=== PATIENT | female | born 1980 | race American Indian/Alaskan Native ===

== ENCOUNTER 2017-09-18 20:41 | Outpatient (CLI) | payer SELFPAY ==
[2017-09-18 21:22] VITALS: BP 127/74
[2017-09-18] MEDS ORDERED: LACTATED RINGERS 1,000 ML IV SCH (22:11)
[2017-09-18] MEDS ORDERED: LACTATED RINGERS 1,000 ML ONE (22:12)
== END 2017-09-18 23:31 | disposition home or self-care (01) ==
LOC: TRG 20:41
PROVIDERS: ATTEND Obstetrics & Gynecology
DX: O09.522 Supervision of elderly multigravida, second trimester (principal); O47.02 False labor before 37 completed weeks of gestation, second trimester; Z3A.27 27 weeks gestation of pregnancy
CPT/HCPCS: 59025; 96360; J7120

== ENCOUNTER 2017-10-10 12:41 | Outpatient (CLI) | payer OTHER ==
[2017-10-10] MEDS ORDERED: LACTATED RINGERS 500 ML IV ONE (12:57)
[2017-10-10 13:43] LABS: Bilirubin,Urine NEG (Negative); Blood,Urine NEG (Negative); Color,Urine Straw (Yellow); Protein,Urine <15 mg/dL mg/dL (Negative); Urobilinogen,Urine < 2.0 mg/dL (<2.0); WBC,Urine < 1.0 /HPF (0.0-6.0)
== END 2017-10-10 14:07 | disposition home or self-care (01) ==
LOC: TRG 12:41
PROVIDERS: ATTEND Obstetrics & Gynecology
DX: O09.523 Supervision of elderly multigravida, third trimester (principal); O47.03 False labor before 37 completed weeks of gestation, third trimester; Z3A.30 30 weeks gestation of pregnancy
CPT/HCPCS: 59025; 81001

== ENCOUNTER 2017-11-16 21:14 | Outpatient (CLI) | payer SELFPAY ==
[2017-11-16] MEDS ORDERED: LACTATED RINGERS 1,000 ML IV ONE (22:26)
[2017-11-16] MEDS ORDERED: BRETHINE SUB-Q STA (23:27)
== END 2017-11-17 00:39 | disposition home or self-care (01) ==
LOC: TRG 21:14
PROVIDERS: ATTEND Obstetrics & Gynecology
DX: O47.1 False labor at or after 37 completed weeks of gestation (principal); Z3A.37 37 weeks gestation of pregnancy
CPT/HCPCS: 59025; 96360; 96372; J3105; J7120

== ENCOUNTER 2017-11-30 17:11 | Outpatient (CLI) | payer OTHER ==
[2017-11-30 17:33] VITALS: BP 123/71
--- NOTE | 2017-11-30 23:23 | Ultrasound Report ---
FINAL REPORT PROCEDURE: US OB LIMITED TECHNIQUE: Real-time limited sonographic examination was performed for evaluation of amniotic fluid volume for each fetus with image documentation (1 or more fetuses). CPT 81758 HISTORY: OUSMANE, BPP COMPARISON: No prior studies are available for comparison. FINDINGS: A single live intrauterine gestation is identified with a heart rate of 140 beats per minute. Amniotic fluid is within normal limits. Amniotic fluid index is 16.9 centimeters. IMPRESSION: OUSMANE is 16.9.
--- NOTE | 2017-11-30 23:24 | Ultrasound Report ---
FINAL REPORT PROCEDURE: US OB BPP WO NON-STRESS TECHNIQUE: Sonographic evaluation for breathing, movement, tone, and amniotic fluid volume was performed. CPT 07119 HISTORY: OUSMANE, BPP COMPARISON: No prior studies are available for comparison. FINDINGS: Amniotic fluid volume: Normal-score 2. At least one vertical pocket > 2 cm or more in vertical axis. breathing: Normal-score 2. movement: Normal-score 2. tone: Normal. Score: 8 of 8. heart rate is 140 beats per minute. IMPRESSION: Biophysical profile is 8/8.
== END 2017-11-30 19:05 | disposition home or self-care (01) ==
LOC: TRG 17:11
PROVIDERS: ATTEND Obstetrics & Gynecology
DX: O47.1 False labor at or after 37 completed weeks of gestation (principal); Z3A.38 38 weeks gestation of pregnancy
CPT/HCPCS: 76815; 76819

== ENCOUNTER 2017-12-02 21:07 | Inpatient (IN) | payer OTHER ==
[2017-12-02] MEDS ORDERED: VISTARIL PO ONE (22:25)
[2017-12-02] MEDS ORDERED: LACTATED RINGERS 1,000 ML IV ONE (22:40)
[2017-12-02] MEDS ORDERED: ZOFRAN IV ONE (22:41)
[2017-12-02] MEDS ORDERED: PEPCID IV ONE (23:28)
[2017-12-02] MEDS ORDERED: REGLAN IV ONE (23:28)
[2017-12-02] MEDS ORDERED: BICITRA PO ONE (23:28)
[2017-12-02 23:43] LABS: Basophils % (Auto) 0.7 % (0.0-1.8); Eosinophils # (Auto) 0.1 K/mm3 (0.0-0.4); Eosinophils % (Auto) 1.1 % (0.0-4.3); Hematocrit 37.4 % (30.3-42.9); Hemoglobin 12.1 gm/dl (10.1-14.3); Lymphocytes # (Auto) 1.6 K/mm3 (1.2-5.4); Lymphocytes % (Auto) 22.2 % (13.4-35.0); Mean Corpuscular HGB Conc 32 % (30-34); Mean Corpuscular Hemoglobin 26 pg (28-32); Mean Corpuscular Volume 81 fl (79-97); Monocytes # (Auto) 0.7 K/mm3 (0.0-0.8); Monocytes % (Auto) 9.7 % (0.0-7.3); Platelet Count 253 K/mm3 (140-440); Red Blood Count 4.61 M/mm3 (3.65-5.03); Red Cell Distribution Width 15.2 % (13.2-15.2)
--- NOTE | 2017-12-02 23:44 | History and Physical Report ---
History of Present Illness Date of examination: 12/02/17 Chief complaint: Abdominal pains History of present illness: Pt is a 37yo BF EDC 12/13/17; EGA 38 3/7 weeks presents to L&D complaining of severe pain along her incision with nausea and vomiting x several hours. She is scheduled for a Repeat C Section 12/07/17, but is currently daisy q 4-5 mins with intense pains. She received care at [facility] since 8 weeks and course complicated by GDM on Glyburide, although the chart notes she should be on Insulin. She has previous C Section x 2, but we will proceed with a repeat C Section due to possible uterine incision pains. Past History Past Medical History: diabetes (on Glyburide) Past Surgical History: section (x2) Family/Genetic History: none Social history: no significant social history, - Obstetrical History Expected Date of Delivery: 12/13/17 Actual Gestation: 38 Week(s) 3 Day(s) : 3 Medications and Allergies Allergies Allergy/AdvReac Type Severity Reaction Status Date / Time No Known Allergies Allergy Verified 11/30/17 17:16 Home Medications Medication Instructions Recorded Confirmed Last Taken Type glyBURIDE [Glyburide] 5 mg PO DAILY 11/30/17 11/30/17 11/26/17 History Active Meds: Active Medications Lactated Ringer's (Lactated Ringers) 1,000 mls @ 999 mls/hr IV BOLUS ONE Stop: 12/02/17 23:40 Last Admin: 12/02/17 23:02 Dose: 999 mls/hr Cefazolin Sodium (Ancef/Sterile Water 2 Gm/20 Ml) 2 gm in 20 mls @ 80 mls/hr IV PREOP NR; Protocol Stop: 12/02/17 23:59 Lactated Ringer's (Lactated Ringers) 1,000 mls @ 2,250 mls/hr IV PREOP EB Stop: 12/04/17 00:12 Oxytocin/Sodium Chloride (Pitocin/Ns 20 Unit/1000ml Drip) 20 units in 1,000 mls @ 0 mls/hr IV TITR EB Review of Systems All systems: negative - Vital Signs Vital signs: Vital Signs Temp Resp 98.9 F 18 12/02/17 21:14 12/02/17 21:14 Temp Pulse Resp BP Pulse Ox 98.9 F 89 18 124/79 97 12/02/17 21:14 12/02/17 23:32 12/02/17 21:14 12/02/17 21:15 12/02/17 23:32 - Physical Exam Breasts: Positive: deferred Cardiovascular: Regular rate Lungs: Positive: Clear to auscultation Abdomen: Positive: normal appearance Genitourinary (Female): Positive: normal external genitalia Uterus: Positive: enlarged Extremities: Positive: normal - Obstetrical FHR: category 1 Uterine Contraction Monitor Mode: External Uterine Contraction Pattern: Regular Uterine Tone Measurement Phase: Contraction Uterine Contraction Intensity: Strong/Firm Results Result Diagrams: 12/02/17 23:00 All other labs normal. Assessment and Plan - Patient Problems (1) 38 weeks gestation of Onset Date: 12/02/17 Current Visit: Yes Status: Acute Plan to address problem: A: IUP @ 38 3/7 weeks in early labor Previous C Section x 2 AMA GDM P: Admit to L&D for repeat C Section Accuchecks (2) Previous section Onset Date: 12/02/17 Current Visit: Yes Status: Acute (3) AMA (advanced maternal age) multigravida 35+ Onset Date: 12/02/17 Current Visit: Yes Status: Acute Qualifiers: Trimester: third trimester Qualified Code(s): O09.523 - Supervision of elderly multigravida, third trimester (4) Gestational diabetes mellitus (GDM) Onset Date: 12/02/17 Current Visit: Yes Status: Acute Qualifiers: Gestational diabetes mellitus control: oral hypoglycemic-controlled Trimester: third trimester Qualified Code(s): O24.415 - Gestational diabetes mellitus in , controlled by oral hypoglycemic drugs
[2017-12-02] MEDS ORDERED: LACTATED RINGERS 1,000 ML IV SCH (23:45)
[2017-12-02] MEDS ORDERED: PITOCin/NS 20 UNIT/1000ML DRIP 20 UNITS/1,000 ML BAG IV SCH (23:45)
[2017-12-02] MEDS ORDERED: ANCEF/STERILE WATER 2 GM/20 ML 2 GM/20 ML SYRINGE IV NR (23:45)
[2017-12-03] MEDS ORDERED: NACL 0.9% IR ONE (03:00)
[2017-12-03] MEDS ORDERED: WATER FOR IRRIG STERILE IR ONE (03:00)
--- NOTE | 2017-12-03 04:10 | Operative Report ---
Operative Report Operative Report: Date of procedure: 12/03/2017 Pre-operative diagnosis: 1. Intrauterine at 38-4/7 weeks in labor 2. Previous 2 3. Gestational diabetes 4. Advanced maternal age Post-operative diagnosis: Same with macrosomia Procedure name(s): Repeat low transverse section Surgeon: Thuan Nixon MD Transit Planning Manager: None Anesthesia: Spinal epidural anesthesia by Dr. Johnson EBL: 700 mL Findings: A 4741 g male infant Apgars 8 at 1 minute and 9 at 5 minutes. Clear amniotic fluid. Normal uterus with lower uterine segment adhesions. Normal tubes and ovaries bilaterally. Procedure: After the patient was prepped and draped in usual sterile fashion, and after satisfactory level of epidural anesthesia was obtained, the skin knife was used to make a transverse skin incision through the previous skin scars. The incision was excised down to layer of the fascia, which was nicked in the midline and extended laterally using the Bovie cautery. The rectus muscles were dissected off the rectus fascia both superiorly and inferiorly. The rectus bellies in the midline, and the peritoneum was entered under direct visualization. The peritoneal incision was extended superiorly and inferiorly. A bladder flap was created and the bladder blade was then placed. The uterus was scored in a curvilinear linear fashion, entered in the midline revealing clear amniotic fluid. The 's head was delivered onto the surgical field, and the oropharynx and nasopharynx were bulb suctioned. The rest of the infant's body was delivered, cord was doubly clamped and cut and the infant was handed to the waiting respiratory team. The placenta was manually removed from the uterus, and the uterus removed from its normal anatomical position. After gentle uterine lavage, the incision was inspected and found to be without extensions. It was then closed in 2 layers using 0 Vicryl suture in a running interlocking fashion, the second layer imbricating the first. After good hemostasis was achieved, copious amounts or irrigation was performed, and the gutters were suctioned free of blood and blood clots. The Tisseel sealant was sprayed across the uterine incision. The uterus was then returned to its normal anatomical position, and after excellent hemostasis assured, the peritoneum was re-approximated using 3-0 Vicryl suture in a running interlocking fashion, and then the rectus muscles were re-approximated using 3-0 Vicryl suture in a [id number] configuration. The fascia was then re-approximated using 0 Vicryl suture in running interlocking fashion. The subcutaneous layer was made hemostatic using Bovie cautery, the Tisseel sealant was sprayed across the fascial incision and the skin edges re- approximated using 4-0 Vicryl suture in a sub-cuticular fashion. Patient tolerated the procedure well was transported to recovery in stable condition.
[2017-12-03] MEDS ORDERED: NARCAN 0.4 MG/1 ML IV PRN (04:13)
[2017-12-03] MEDS ORDERED: NORCO 5/325 PO PRN (04:13)
[2017-12-03] MEDS ORDERED: TUCKS PAD TP PRN (04:13)
[2017-12-03] MEDS ORDERED: TORADOL IV PRN (04:13)
[2017-12-03] MEDS ORDERED: ZOFRAN IV PRN (04:13)
[2017-12-03] MEDS ORDERED: LANSINOH TP PRN (04:13)
[2017-12-03] MEDS ORDERED: TYLENOL PO PRN (04:13)
[2017-12-03] MEDS ORDERED: D50W (25GM) Syringe IV PRN (04:13)
[2017-12-03] MEDS ORDERED: MYLICON PO PRN (04:13)
[2017-12-03] MEDS ORDERED: MILK OF MAGNESIA PO PRN (04:13)
[2017-12-03] MEDS ORDERED: SENOKOT PO PRN (04:13)
[2017-12-03] MEDS ORDERED: SODIUM CHLORIDE FLUSH SYRINGE 10 ML IV PRN (05:00)
[2017-12-03] MEDS ORDERED: ANCEF/NS 1 GM/50 ML 1 GM/50 ML BAG IV SCH (05:00)
[2017-12-03] MEDS ORDERED: LACTATED RINGERS 1,000 ML IV SCH (05:00)
[2017-12-03] MEDS ORDERED: PITOCin/NS 20 UNIT/1000ML DRIP 20 UNITS/1,000 ML BAG IV SCH (05:00)
--- NOTE | 2017-12-03 07:03 | Anesthesia Consultation ---
Anesthesia Consult and Med Hx Date of service: 12/03/17 - Airway Anesthetic Teeth Evaluation: Poor ROM Head & Neck: Adequate Mental/Hyoid Distance: Adequate Mallampati Class: Class II Intubation Access Assessment: Probably Good - Pulmonary Exam CTA: Yes - Cardiac Exam Cardiac Exam: RRR Anesthetic Concerns: none - Pre-Operative Health Status ASA Pre-Surgery Classification: ASA3 Proposed Anesthetic Plan: Spinal (gestastation DM ) - Pulmonary Hx Asthma: No COPD: No Hx Pneumonia: No - Cardiovascular System Hx Hypertension: No - Central Nervous System Hx Seizures: No Hx Psychiatric Problems: No - Endocrine Hx Renal Disease: No Hx End Stage Renal Disease: No Hx Hypothyroidism: No Hx Hyperthyroidism: No - Hematic Hx Anemia: No Hx Sickle Cell Disease: No - Other Systems Hx Alcohol Use: No
[2017-12-03] MEDS ORDERED: HumuLIN R SUB-Q SCH (07:30)
[2017-12-03] MEDS: PERCOCET 5/325 PO PRN ×2 (09:48→15:50)
[2017-12-03] MEDS: ceFAZolin 1 GM in NACL 0.9% 20 ML IV SCH ×2 (10:21→18:20)
[2017-12-03] MEDS: FEOSOL PO SCH (15:50)
[2017-12-03 16:17] LABS: Hematocrit 33.9 % (30.3-42.9); Hemoglobin 10.9 gm/dl (10.1-14.3)
[2017-12-03] MEDS: MOTRIN PO PRN (20:19)
[2017-12-04] MEDS: MOTRIN PO PRN (02:04)
[2017-12-04] MEDS: PERCOCET 5/325 PO PRN ×3 (03:43→20:32)
[2017-12-04] MEDS ORDERED: M-M-R II VACCINE SUB-Q ONE (04:15)
[2017-12-04] MEDS ORDERED: BOOSTRIX IM ONE (06:00)
--- NOTE | 2017-12-04 09:22 | Progress Note ---
Assessment and Plan A: /postop day 1. P: Encouraged ambulation. Supplement with iron. Subjective - Subjective Date of service: 12/04/17 Principal diagnosis: /postop day 1 Interval history: /postop day 1. Patient is doing well. Patient reports small amount of lochia. She is voiding without difficulty. Ambulating to restroom; has not ambulated in last yet. No flatus yet. Patient denies headache, chest pain, cough , shortness of breath, leg pain, abdominal pain, heavy bleeding, or nausea. Patient states she is considering Nexplanon for contraception at her 6-8 week office visit. Patient reports: appetite normal, voiding normally, pain well controlled, ambulating normally, no flatus : doing well Objective - Vital Signs Latest vital signs: Vital Signs Temp Pulse Resp BP Pulse Ox 12/04/17 03:43 18 12/04/17 02:04 18 12/04/17 00:00 98.7 F 74 18 114/78 12/03/17 21:19 18 12/03/17 20:19 20 12/03/17 20:00 98.7 F 83 18 129/84 12/03/17 17:06 99.5 F 84 20 114/76 95 12/03/17 11:48 98.3 F 85 20 110/63 97 Intake and Output 12/03/17 12/04/17 12/04/17 23:59 07:59 15:59 Intake Total 900 400 Output Total 900 500 Balance 0 -100 Intake: Oral 600 400 Intake, Free Water 300 Output: Urine 900 500 Indwelling Catheter 400 Void 500 500 Other: Total, Intake Amount 480 400 Total, Output Amount 500 500 - Exam Cardiovascular: Present: Regular rate, Normal S1, Normal S2 Lungs: Present: Clear to auscultation Abdomen: Present: normal appearance, soft, normal bowel sounds. Absent: distention, tenderness, guarding, rigidity Uterus: Present: normal, firm, fundal height below umbilicus. Absent: bogginess , tenderness Extremities: Present: normal. Absent: tenderness, edema Incision: Present: dry, intact, dressed - Labs Labs: Abnormal lab results 12/03/17 12/03/17 12/04/17 Range/Units 09:32 17:21 08:09 POC Glucose 58 L 51 L 50 L (70-105)
[2017-12-04] MEDS: FEOSOL PO SCH (14:30)
[2017-12-04] MEDS: PRENATAL VITAMIN PO SCH (14:30)
--- NOTE | 2017-12-05 07:29 | Progress Note ---
Assessment and Plan A: /postop day 2. Normal postop course. P: Anticipate discharge tomorrow afternoon. Encouraged pt. to ambulate. Subjective - Subjective Date of service: 12/05/17 Principal diagnosis: /postop day 2 Interval history: /postop day 2. Doing well. Denies pain. + flatus. Reports small amount of lochia. Voiding without difficulty. Ambulating well. Tolerating regular diet without nausea or vomiting. Patient denies headache, visual disturbance, chest pain, cough, shortness of breath, abdominal pain, nausea or vomiting, leg pain, heavy bleeding, or symptoms of depression. Patient plans to use Nexplanon for contraception at 8 weeks . Patient reports: appetite normal, voiding normally, pain well controlled, flatus , ambulating normally : doing well Objective - Vital Signs Latest vital signs: Vital Signs Temp Pulse Resp BP Pulse Ox 12/04/17 23:30 98 F 69 16 114/68 12/04/17 16:10 99.3 F 83 18 128/80 94 12/04/17 08:07 98.1 F 70 18 111/71 96 Intake and Output 12/04/17 12/04/17 12/05/17 15:59 23:59 07:59 Intake Total 360 660 300 Output Total 300 Balance 60 660 300 Intake: Oral 360 360 Intake, Free Water 300 300 Output: Urine 300 Void 300 Other: Total, Intake Amount 360 360 Total, Output Amount 300 # Voids Void 2 1 - Exam Cardiovascular: Present: Regular rate, Normal S1, Normal S2, No murmurs Lungs: Present: Clear to auscultation Abdomen: Present: normal appearance, soft, normal bowel sounds. Absent: distention, tenderness, guarding, rigidity Uterus: Present: normal, firm, fundal height below umbilicus. Absent: bogginess , tenderness Extremities: Present: normal. Absent: tenderness, edema Incision: Present: normal, dry, intact - Labs Labs: Abnormal lab results 12/04/17 Range/Units 08:09 POC Glucose 50 L (70-105)
[2017-12-05] MEDS: PERCOCET 5/325 PO PRN ×2 (07:53→16:46)
[2017-12-05] MEDS: PRENATAL VITAMIN PO SCH ×2 (10:00→10:16)
[2017-12-05] MEDS: FEOSOL PO SCH (10:16)
[2017-12-05] MEDS: MOTRIN PO PRN (20:07)
[2017-12-06] MEDS: PERCOCET 5/325 PO PRN (05:48)
--- NOTE | 2017-12-06 10:25 | Progress Note ---
Assessment and Plan - Patient Problems (1) S/P repeat low transverse Current Visit: Yes Status: Acute Plan to address problem: POD 3 - stable Discharge to home today F/U at [facility] in 2 weeks for incision check Call [facility] to schedule circumcision in 1 week Subjective - Subjective Date of service: 12/06/17 Principal diagnosis: Repeat LTCS; Postop day 2 Patient reports: appetite normal, voiding normally, pain well controlled, flatus , ambulating normally : doing well, nursing well, bottle feeding Objective - Vital Signs Latest vital signs: Vital Signs Temp Pulse Resp BP Pulse Ox 12/06/17 07:45 98.3 F 75 20 118/69 96 12/06/17 01:30 98.6 F 77 20 117/77 97 12/05/17 17:00 98.3 F 87 18 128/74 98 12/05/17 16:46 20 Intake and Output 12/05/17 12/06/17 12/06/17 23:59 07:59 15:59 Intake Total 600 240 360 Balance 600 240 360 Intake: Oral 600 240 360 Other: Total, Intake Amount 360 240 360 # Voids Void 1 1 1 - Exam Lungs: Present: Clear to auscultation, Normal air movement Abdomen: Present: normal appearance, soft Vulva: both: normal Uterus: Present: normal, firm, fundal height below umbilicus Extremities: Present: normal Incision: Present: normal, dry, intact
--- NOTE | 2017-12-06 10:25 | Discharge Summary ---
Providers - Providers Date of Admission: 12/03/17 00:28 Date of discharge: 12/06/17 Attending physician: RADHA GUZMÁN MD Primary care physician: RADHA GUZMÁN MD Hospitalization Reason for admission: IUP at term, other (early labor) Delivery: Procedure: repeat low transverse Episiotomy: none Laceration: none Incision: normal, dry, intact complications: none Discharge diagnosis: IUP at term delivered [place] baby: male Hospital course: Uncomplicated Condition at discharge: Stable Disposition: [id number] TO HOME OR SELFCARE - Discharge Diagnoses (1) S/P repeat low transverse Status: Acute Plan - Discharge Medications Prescriptions: Ferrous Sulfate [Feosol 325 MG tab] 325 mg PO BID #60 tablet HYDROcodone/APAP 5-325 [[place] 5/325] 1 each PO Q6HR PRN #30 tablet PRN Reason: Pain Ibuprofen [Motrin] 800 mg PO Q8HR PRN #30 tablet PRN Reason: Moder Pain Unrelieved By [place] Vit Calc,Iron,Folic [ Vitamins] 1 each PO DAILY #30 tablet - Provider Discharge Summary Activity: routine, no sex for 6 weeks, no heavy lifting 4 weeks, no strenuous exercise Diet: routine Instructions: routine Additional instructions: [] Smoking cessation referral if applicable(refer to patient education folder for contact #) [] Refer to [facility]'s [facility] Booklet Call your doctor immediately for: * Fever > 100.5 * Heavy vaginal bleeding ( >1 pad per hour) * Severe persistent headache * Shortness of breath * Reddened, hot, painful area to leg or breast * Drainage or odor from incision. * Keep incision clean and dry at all times and follow doctor's instructions regarding bathing/showering - Follow up plan Follow up: RADHA GUZMÁN MD [Primary Care Provider] - 14 Days (Follow up at [facility] in 2 weeks for incision check Call [facility] to schedule circumcision in 1 week)
[2017-12-06] MEDS: FEOSOL PO SCH (10:55)
[2017-12-06] MEDS: PRENATAL VITAMIN PO SCH (10:55)
[2017-12-06] MEDS: MOTRIN PO PRN (18:30)
[2017-12-06 19:47] VITALS: BP 116/76
== END 2017-12-06 20:33 | disposition home or self-care (01) | DRG 766 ==
LOC: TRG 21:07 → APU 12-03 00:28 → TRG 12-03 00:28 → OB 12-03 06:38
PROVIDERS: ADMIT Obstetrics & Gynecology; ATTEND Obstetrics & Gynecology
PROC: 10D00Z1 Extraction of Products of Conception, Low, Open Approach (ICD-10-PCS; principal; 2017-12-03)
PROC: 3E0234Z Introduction of Serum, Toxoid and Vaccine into Muscle, Percutaneous Approach (ICD-10-PCS; 2017-12-04)
DX: O24.425 Gestational diabetes mellitus in childbirth, controlled by oral hypoglycemic drugs (principal); Z37.0 Single live birth; O36.63X0 Maternal care for excessive fetal growth, third trimester, not applicable or unspecified; Z3A.38 38 weeks gestation of pregnancy; Z23 Encounter for immunization
CPT/HCPCS: 36415; 82962; 85014; 85018; 85025; 86850; 86900; 86901; 88307; 90471; 90707; 90715; 99211; A6250; C9250; G0463; J0690; J1885; J2405; J2590; J2765; J7120